=== PATIENT | female | born 1980 | race Caucasian/White ===

== ENCOUNTER 2019-03-06 05:19 | Inpatient (IN) | payer MEDICAID, OTHER ==
[~2019-03-06] VITALS: Ht 170.2 cm; Wt 84.5 kg
[2019-03-06] MEDS ORDERED: MORPHINE SULFATE 4 MG/ML SYR/VIAL IV ONE (05:45)
[2019-03-06] MEDS ORDERED: SODIUM CHLORIDE 0.9% 1,000 ML IV ONE (05:45)
[2019-03-06] MEDS ORDERED: ONDANSETRON HCL 4 MG/2 ML VIAL IV ONE ×2 (05:45→08:00)
[2019-03-06 06:00] LABS: Urine Amorphous Crystal FEW /hpf (None Seen); Urine Bacteria FEW /hpf (None Seen); Urine Blood 3+ /uL (Negative); Urine Budding Yeast MANY /hpf (None Seen); Urine Mucus FEW (None Seen); Urine Specific Gravity 1.024 (1.001-1.035); Urine WBC 44 /hpf (0 - 5); Urine WBC Clumps PRESENT /hpf (None Seen)
[2019-03-06 06:52] LABS: Basophils # (auto) 0 uL; Basophils % (auto) 0.4 % (0.0-2.0); Eosinophils # (auto) 0.1 uL; Hemoglobin 12.2 g/dL (12.2-16.2); Lymphocytes # (auto) 1.4 uL; Mean Corpuscular Volume 78.9 fL (80.0-100.0); Monocytes # (auto) 0.6 uL; Monocytes % (auto) 6.3 % (0.0-12.0); Nucleated Red Blood Cells % 0.1 %
[2019-03-06 06:53] LABS: Eosinophils % (auto) 0.7 % (0.0-7.0); Hematocrit 37.1 % (36.0-46.0); Lymphocytes % (auto) 14.2 % (10.0-50.0); Mean Corpuscular Hgb Conc. 32.9 g/dL (32.0-36.0); Neutrophils # (auto) 7.7 uL; Neutrophils % (auto) 78.4 % (37.0-80.0); Platelet Count (auto) 195 10^3/uL (140-450); White Blood Cell 9.8 10^3/uL (4.4-10.8)
[2019-03-06 07:36] LABS: BUN/Creatinine Ratio 23.3; Potassium 3.9 mmol/L (3.5-5.1)
[2019-03-06 07:37] LABS: Albumin 3.1 g/dL (3.4-5.0); Bilirubin, Total 0.2 mg/dL (0.2-1.0); Calcium 7.9 mg/dL (8.5-10.1); Total Protein 6.5 g/dL (6.4-8.2)
[2019-03-06] MEDS ORDERED: KETOROLAC TROMETH 30 MG/ML 1ML VIAL IV ONE (07:45)
[2019-03-06] MEDS ORDERED: ONDANSETRON HCL 4 MG/2 ML VIAL ONE (07:52)
[2019-03-06 08:29] LABS: Alcohol, Urine < 3.0 mg/dL (0-5); Amphetamine Screen, Urine NEGATIVE (NEGATIVE); Barbiturate Scree,Urine POSITIVE (NEGATIVE); Benzodiazephine Screen, Urine NEGATIVE (NEGATIVE); Cannabinoid Screen, Urine POSITIVE (NEGATIVE); Cocaine Screen, Urine NEGATIVE (NEGATIVE); Opiate Scree,Urine NEGATIVE (NEGATIVE); Phencyclidine Screen, Urine NEGATIVE (NEGATIVE)
[2019-03-06] MEDS ORDERED: HYDROcodone-ACET 5/325MG TAB PO PRN (11:30)
[2019-03-06] MEDS ORDERED: ACETAMINOPHEN 500 MG TAB PO PRN (11:30)
[2019-03-06] MEDS: SODIUM CHLORIDE 0.9% 1,000 ML IV SCH ×2 (12:00→19:20)
--- NOTE | 2019-03-06 12:23 | NUR ---
MS admit from ER TRANTER,ANTWAN admitted to tele/MS after SBAR received. Patient oriented to Ainsley Diaz, RN primary RN, unit, room, bed, and unit policies regarding patient care and visiting hours. Patient weighed by bedscale and encouraged to call if they need something. All questions and concerns addressed, patient verbalized understanding. Note:
[2019-03-06] MEDS: ONDANSETRON HCL 4 MG/2 ML VIAL IV PRN ×2 (12:57→17:10)
[2019-03-06] MEDS: KETOROLAC TROMETH 30 MG/ML 1ML VIAL IV PRN (12:57)
[2019-03-06 13:00] VITALS: BP 134/63
[2019-03-06] MEDS: MORPHINE SULF INJ 2 MG/ML SYRINGE 1ML IV PRN ×3 (13:14→21:05)
--- NOTE | 2019-03-06 13:19 | NUR ---
Pain 10/10. Patient crying, nauseated. Confirmed with patient that she is not allergic to morphine. Morphine 2 mg IV given. Will continue to monitor.
--- NOTE | 2019-03-06 13:23 | NUR ---
Spoke with pharmacist, IVÁN, and informed her that patient has confirmed she is not allergic to Morphine.
[2019-03-06] MEDS: metroNIDAZOLE 500MG/100ML 100 ML IV SCH ×2 (14:00→23:02)
[2019-03-06 14:23] VITALS: BP 134/63
[2019-03-06 16:22] VITALS: BP 99/54
[2019-03-06] MEDS: TAMSULOSIN HYDROCHLORIDE 0.4 MG CAP PO SCH (18:11)
--- NOTE | 2019-03-06 19:00 | NUR ---
Opening Shift Note Assumed care of patient, awake and alert. No S/S of distress/SOB or pain. Instructed on POC and to call for assist PRN, will continue to monitor for changes Q1hr and PRN.
[2019-03-06 21:36] VITALS: BP 104/61
[2019-03-06] MEDS: DOCUSATE SOD 100 MG CAP PO SCH (23:02)
[2019-03-06] MEDS: FAMOTIDINE (10MG/ML) 2ML VL IV SCH (23:02)
[2019-03-07] MEDS: ONDANSETRON HCL 4 MG/2 ML VIAL IV PRN ×3 (01:12→18:43)
[2019-03-07] MEDS: MORPHINE SULF INJ 2 MG/ML SYRINGE 1ML IV PRN ×6 (01:12→21:58)
[2019-03-07] MEDS: SODIUM CHLORIDE 0.9% 1,000 ML IV SCH ×3 (03:20→19:20)
[2019-03-07 05:12] LABS: Basophils # (auto) 0 uL; Eosinophils # (auto) 0.1 uL; Monocytes # (auto) 0.6 uL; Neutrophils # (auto) 3.9 uL
[2019-03-07 05:17] LABS: Basophils % (auto) 0.4 % (0.0-2.0); Eosinophils % (auto) 1.2 % (0.0-7.0); Hematocrit 32.7 % (36.0-46.0); Hemoglobin 10.6 g/dL (12.2-16.2); Lymphocytes # (auto) 1.7 uL; Lymphocytes % (auto) 27.1 % (10.0-50.0); Mean Corpuscular Hemoglobin 25.7 pg (28.0-32.0); Mean Corpuscular Hgb Conc. 32.6 g/dL (32.0-36.0); Neutrophils % (auto) 62.3 % (37.0-80.0); Nucleated Red Blood Cells % 0.1 %; Platelet Count (auto) 160 10^3/uL (140-450); Red Blood Cells 4.14 10^6/uL (4.0-5.20); Red Cell Distribution Width 17.8 % (11.8-14.3); White Blood Cell 6.2 10^3/uL (4.4-10.8)
[2019-03-07 05:29] VITALS: BP 105/52
[2019-03-07 05:36] LABS: Calcium 7.8 mg/dL (8.5-10.1); Potassium 4.1 mmol/L (3.5-5.1)
[2019-03-07 05:38] LABS: BUN/Creatinine Ratio 23.8
[2019-03-07] MEDS: metroNIDAZOLE 500MG/100ML 100 ML IV SCH (05:48)
[2019-03-07] MEDS: cefTRIAXone 1GM/50ML D5W 50 ML IV SCH (08:50)
[2019-03-07 09:00] VITALS: BP 110/65
[2019-03-07] MEDS: FAMOTIDINE (10MG/ML) 2ML VL IV SCH ×2 (10:16→21:58)
[2019-03-07] MEDS: DOCUSATE SOD 100 MG CAP PO SCH ×2 (10:16→21:58)
[2019-03-07 13:00] VITALS: BP 101/68
--- NOTE | 2019-03-07 13:40 | NUR ---
right forarm 22g peripheral iv inserted pt tolerated well iv patent blood drawback noted
[2019-03-07] MEDS ORDERED: MANNITOL FTV 25% 12.5 GM/50 ML 50 ML IV ONE (15:30)
[2019-03-07 17:00] VITALS: BP 107/68
[2019-03-07] MEDS: TAMSULOSIN HYDROCHLORIDE 0.4 MG CAP PO SCH (17:53)
[2019-03-07 22:47] VITALS: BP 102/52
[2019-03-08] MEDS: MORPHINE SULF INJ 2 MG/ML SYRINGE 1ML IV PRN ×5 (01:34→22:25)
[2019-03-08] MEDS: SODIUM CHLORIDE 0.9% 1,000 ML IV SCH ×3 (03:20→20:59)
[2019-03-08 05:10] VITALS: BP 93/50
[2019-03-08 06:51] LABS: Basophils # (auto) 0 uL; Basophils % (auto) 0.6 % (0.0-2.0); Eosinophils # (auto) 0.1 uL; Hemoglobin 10.2 g/dL (12.2-16.2); Lymphocytes # (auto) 1.4 uL; Monocytes # (auto) 0.4 uL; Nucleated Red Blood Cells % 0.1 %
[2019-03-08 07:02] LABS: Eosinophils % (auto) 1.3 % (0.0-7.0); Hematocrit 30.7 % (36.0-46.0); Lymphocytes % (auto) 34.4 % (10.0-50.0); Mean Corpuscular Hemoglobin 26.1 pg (28.0-32.0); Mean Corpuscular Hgb Conc. 33.1 g/dL (32.0-36.0); Mean Corpuscular Volume 78.7 fL (80.0-100.0); Neutrophils # (auto) 2.2 uL; Neutrophils % (auto) 53.7 % (37.0-80.0); Platelet Count (auto) 138 10^3/uL (140-450); Red Cell Distribution Width 17.7 % (11.8-14.3); White Blood Cell 4.1 10^3/uL (4.4-10.8)
[2019-03-08 07:03] LABS: Potassium 3.9 mmol/L (3.5-5.1)
[2019-03-08 07:11] LABS: Albumin 2.5 g/dL (3.4-5.0); BUN/Creatinine Ratio 20.3; Bilirubin, Total 0.2 mg/dL (0.2-1.0); Calcium 7.8 mg/dL (8.5-10.1); Total Protein 5.2 g/dL (6.4-8.2)
--- NOTE | 2019-03-08 07:15 | NUR ---
Opening Shift Note Assumed care of patient, PT resting in bed with even and non-labored respirations. No S/S of distress/SOB or pain. Instructed on POC and to call for assist PRN, will continue to monitor for changes Q1hr and PRN.
[2019-03-08 09:00] VITALS: BP 108/65
[2019-03-08] MEDS: ONDANSETRON HCL 4 MG/2 ML VIAL IV PRN ×2 (09:23→22:25)
[2019-03-08] MEDS: FAMOTIDINE (10MG/ML) 2ML VL IV SCH ×2 (09:23→22:25)
[2019-03-08] MEDS: DOCUSATE SOD 100 MG CAP PO SCH ×2 (09:23→22:00)
[2019-03-08] MEDS: cefTRIAXone 1GM/50ML D5W 50 ML IV SCH (09:23)
[2019-03-08 13:00] VITALS: BP 124/58
--- NOTE | 2019-03-08 13:30 | NUR ---
PT COMPLAINING OF CONSTIPATION. PT STATES "I HAVE HAD RECONSTRUCTION SURGERY ON MY COLON AND I AM NOT ABLE TO STRAIN WHILE HAVING A BOWEL MOVEMENT SO I NEED SOMETHING STRONGER BECAUSE I WILL BE IN BIG TROUBLE IF I STRAIN TO HARD." PT HAS NORMOACTIVE BOWEL SOUNDS, STOMACH IS SOFT, ROUND AND NON-TENDER.
--- NOTE | 2019-03-08 13:50 | NUR ---
ROUNDING UROLOGY MD GONZALEZ ASSOCIATE AT BEDSIDE. ALL QUESTIONS AND CONCERNS ADDRESSED AT THIS TIME.
--- NOTE | 2019-03-08 14:00 | NUR ---
AC [facility]KEON RE: PT NEEDING STRONGER MEDICATION FOR CONSTIPATION Addendum: 03/08/19 at 1403 by NEGRITA JEFFERSON RN RN AWAITING FOR CALL BACK.
--- NOTE | 2019-03-08 14:00 | NUR ---
PT SIGNED AMA TO SMOKE. PT EDUCATED ABOUT NEGATIVE CONSEQUENCES OF SMOKING AND THE BENEFITS OF SMOKING CESSATION. PT VERBALIZED UNDERSTANDING AND WOULD STILL LIKE TO CONTINUE WITH THE AMA.
--- NOTE | 2019-03-08 15:48 | NUR ---
IV removal IV DC'd with clean sterile technique, catheter fully intact. Pressure dressing applied to site. Patient tolerated well.
--- NOTE | 2019-03-08 15:49 | NUR ---
IV insertion IV access obtained, via clean sterile technique by inserting 20 gauge catheter at the left forearm after 1 attempt(s). IV secured properly. No trauma to site. Patient tolerated well.
[2019-03-08 17:00] VITALS: BP 111/52
[2019-03-08] MEDS: TAMSULOSIN HYDROCHLORIDE 0.4 MG CAP PO SCH (17:00)
[2019-03-08] MEDS ORDERED: FLEET ENEMA(ADULT) 135 ML PR ONE (17:15)
[2019-03-08] MEDS ORDERED: FLEET ENEMA(ADULT) 135 ML PR PRN (17:30)
--- NOTE | 2019-03-08 19:05 | NUR ---
Opening Shift Note Assumed care of patient, awake and alert. No S/S of distress/SOB. POC discussed and questions answered. Bed is locked in lowest position with side rails up x2 for safety, call light is within reach and patient encouraged to call for assistance as needed, will continue to round q1hr and prn.
[2019-03-08 21:55] VITALS: BP 102/54
[2019-03-09] MEDS: MORPHINE SULF INJ 2 MG/ML SYRINGE 1ML IV PRN ×5 (02:39→20:09)
[2019-03-09] MEDS: SODIUM CHLORIDE 0.9% 1,000 ML IV SCH ×3 (04:05→18:19)
[2019-03-09 05:45] LABS: BUN/Creatinine Ratio 17.7; Calcium 7.9 mg/dL (8.5-10.1)
[2019-03-09 06:22] VITALS: BP 96/46
--- NOTE | 2019-03-09 07:49 | NUR ---
Opening Note Assumed pt care from [facility] nurse. Pt is a/ox4 with no s/s of distress or SOB. PT is currently laying in bed with c/o of generalized abdominal pain; discussed available pain medication. Discussed POC with pt and the possibility of procedure tomorrow if pt does not pass stone; pt verbalized understanding. Safety measures maintained with call light within reach, bed in lowest position and side rails up. Will continue to monitor for changes q1hr and prn.
[2019-03-09 08:21] VITALS: BP 100/52
[2019-03-09] MEDS: cefTRIAXone 1GM/50ML D5W 50 ML IV SCH (08:31)
[2019-03-09] MEDS: FAMOTIDINE (10MG/ML) 2ML VL IV SCH ×2 (09:24→22:04)
[2019-03-09] MEDS: DOCUSATE SOD 100 MG CAP PO SCH ×2 (09:24→21:55)
--- NOTE | 2019-03-09 11:01 | NUR ---
Pt Off Unit to Smoke Signed AMA to smoke form is in the chart. Pt knows to be back on unit within 30 minutes. Addendum: 03/09/19 at 1144 by KINSEY JUAREZ RN RN PATIENT BACK ON UNIT
[2019-03-09 12:33] VITALS: BP 113/78
--- NOTE | 2019-03-09 13:55 | NUR ---
Pt Off Unit Pt off unit to smoke. Pt aware of need to be back within 30 minutes. Signed AMA to smoke in chart. Addendum: 03/09/19 at 1430 by KINSEY JUAREZ RN RN Pt back on unit
--- NOTE | 2019-03-09 15:21 | NUR ---
Nutrition Assessment Notes please see attached link for complete assessment Est. Needs BW 78 [id number] kcal (23-25 kcal/kgBW), 78-85 gms pro (1.0-1.1 gms/kgBW). Will continue to monitor pertinent labs and reassess nutrient need prn Addendum: 03/09/19 at [address] Amended: Links added.
[2019-03-09 16:50] VITALS: BP 96/54
[2019-03-09] MEDS: TAMSULOSIN HYDROCHLORIDE 0.4 MG CAP PO SCH (18:03)
[2019-03-09] MEDS: ONDANSETRON HCL 4 MG/2 ML VIAL IV PRN (20:08)
[2019-03-09 21:00] VITALS: BP 98/54
[2019-03-10] MEDS: SODIUM CHLORIDE 0.9% 1,000 ML IV SCH ×3 (02:34→20:27)
[2019-03-10 04:30] VITALS: BP 106/68
[2019-03-10] MEDS: ONDANSETRON HCL 4 MG/2 ML VIAL IV PRN (04:38)
[2019-03-10] MEDS: MORPHINE SULF INJ 2 MG/ML SYRINGE 1ML IV PRN ×3 (04:38→18:58)
[2019-03-10 07:10] LABS: Basophils # (auto) 0 uL; Eosinophils # (auto) 0.1 uL; Hematocrit 32.4 % (36.0-46.0); Monocytes # (auto) 0.5 uL; Monocytes % (auto) 10.9 % (0.0-12.0); Neutrophils # (auto) 2.4 uL
[2019-03-10 07:18] LABS: Basophils % (auto) 0.8 % (0.0-2.0); Eosinophils % (auto) 2.3 % (0.0-7.0); Hemoglobin 10.6 g/dL (12.2-16.2); Lymphocytes # (auto) 1.3 uL; Lymphocytes % (auto) 30.1 % (10.0-50.0); Mean Corpuscular Hgb Conc. 32.7 g/dL (32.0-36.0); Mean Corpuscular Volume 79.6 fL (80.0-100.0); Neutrophils % (auto) 55.9 % (37.0-80.0); Platelet Count (auto) 136 10^3/uL (140-450); Red Blood Cells 4.07 10^6/uL (4.0-5.20); Red Cell Distribution Width 17.6 % (11.8-14.3); White Blood Cell 4.4 10^3/uL (4.4-10.8)
[2019-03-10 07:29] LABS: Albumin 2.6 g/dL (3.4-5.0); Calcium 7.9 mg/dL (8.5-10.1); Potassium 4.4 mmol/L (3.5-5.1)
[2019-03-10 07:45] LABS: Bilirubin, Total 0.2 mg/dL (0.2-1.0); Total Protein 5.4 g/dL (6.4-8.2)
--- NOTE | 2019-03-10 07:52 | NUR ---
TAKEN TO PRE OP VIA BED. NO SIGNS OF DISTRESS REPORT GIVEN TO IRAIS Gutierrez
[2019-03-10] MEDS ORDERED: ROPIVACAINE 0.5% (5MG/ML) 20ML AMPULE IJ ONE (08:03)
[2019-03-10] MEDS: IOHEXOL 300 MG/ML 100ML BOTTLE IJ ONE ×2 (08:08→08:46)
[2019-03-10] MEDS ORDERED: ceFAZolin 1GM/50ML 50 ML IV ONE (08:10)
[2019-03-10] MEDS ORDERED: fentaNYL CITRATE 100 MCG/2 ML VL ONE (08:12)
[2019-03-10] MEDS ORDERED: MEPERIDINE HCL (25 MG/ML) 1ML VIAL ONE (08:12)
[2019-03-10] MEDS ORDERED: MIDAZOLAM HCL 1MG/1ML-2 ML VIAL ONE (08:13)
[2019-03-10] MEDS ORDERED: MIDAZOLAM HCL 1MG/1ML-2 ML VIAL IV PRN (08:15)
[2019-03-10] MEDS ORDERED: KETOROLAC TROMETH 30 MG/ML 1ML VIAL IV ONE (08:15)
[2019-03-10] MEDS ORDERED: ONDANSETRON HCL 4 MG/2 ML VIAL IV PRN (08:15)
[2019-03-10] MEDS ORDERED: PROPOFOL 10 MG/ML 20 ML IV ONE (08:15)
[2019-03-10] MEDS ORDERED: DexAMETHasone SOD PHOS 10MG/1ML VIAL INJ ONE (08:15)
[2019-03-10] MEDS ORDERED: HYDROmorphone HCL 2 MG/ML VL IV PRN (08:15)
[2019-03-10] MEDS ORDERED: ePHEDrine SULFATE 50 MG/ML AMP IV PRN (08:15)
[2019-03-10] MEDS ORDERED: MORPHINE SULFATE 4 MG/ML SYR/VIAL IV PRN (08:15)
[2019-03-10] MEDS ORDERED: LABETALOL HCL 5 MG/ML 4ML SYRINGE IV PRN (08:15)
[2019-03-10 08:28] VITALS: BP 110/58
[2019-03-10] MEDS ORDERED: ePHEDrine SULFATE 50 MG/ML AMP ONE (08:35)
[2019-03-10] MEDS: cefTRIAXone 1GM/50ML D5W 50 ML IV SCH (09:00)
[2019-03-10] MEDS: FAMOTIDINE (10MG/ML) 2ML VL IV SCH ×2 (10:00→21:45)
[2019-03-10] MEDS: DOCUSATE SOD 100 MG CAP PO SCH ×2 (10:00→21:48)
[2019-03-10 12:28] VITALS: BP 123/67
[2019-03-10] MEDS: KETOROLAC TROMETH 30 MG/ML 1ML VIAL IV PRN (12:31)
[2019-03-10] MEDS: TAMSULOSIN HYDROCHLORIDE 0.4 MG CAP PO SCH (18:35)
--- NOTE | 2019-03-10 19:45 | NUR ---
OPENING SHIFT NOTE RECEIVED PATIENT REPORT FROM DAY SHIFT RN. PATIENT SITTING UP IN BED WATCHING TELEVISION. PATIENT IS A/O X 4. NO S/S OF DISTRESS OR SOB. PATIENT C/O PAIN, WILL MEDICATE PRESCRIBED BY MD. UPDATED PATIENT ON POC, VERBALIZED UNDERSTANDING. BED IN LOWEST LOCKED POSITION, CALL LIGHT WITHIN REACH. WILL CONTINUE TO MONITOR Q1H AND PRN.
[2019-03-10 23:00] VITALS: BP 112/60
[2019-03-11] MEDS: MORPHINE SULF INJ 2 MG/ML SYRINGE 1ML IV PRN ×4 (03:05→21:22)
[2019-03-11] MEDS: SODIUM CHLORIDE 0.9% 1,000 ML IV SCH ×3 (03:20→19:20)
[2019-03-11 05:47] VITALS: BP 115/70
[2019-03-11 07:14] LABS: Basophils # (auto) 0 uL; Eosinophils # (auto) 0.1 uL; Hematocrit 30.1 % (36.0-46.0); Hemoglobin 9.9 g/dL (12.2-16.2); Monocytes # (auto) 0.5 uL; Neutrophils # (auto) 2.9 uL; Nucleated Red Blood Cells % 0.1 %; White Blood Cell 5.5 10^3/uL (4.4-10.8)
[2019-03-11 07:18] LABS: Basophils % (auto) 0.5 % (0.0-2.0); Eosinophils % (auto) 1.5 % (0.0-7.0); Lymphocytes % (auto) 36.1 % (10.0-50.0); Mean Corpuscular Hemoglobin 26.2 pg (28.0-32.0); Mean Corpuscular Hgb Conc. 32.9 g/dL (32.0-36.0); Mean Corpuscular Volume 79.5 fL (80.0-100.0); Neutrophils % (auto) 52.9 % (37.0-80.0); Platelet Count (auto) 134 10^3/uL (140-450); Red Blood Cells 3.78 10^6/uL (4.0-5.20); Red Cell Distribution Width 17.5 % (11.8-14.3)
[2019-03-11 07:29] LABS: Calcium 7.6 mg/dL (8.5-10.1)
[2019-03-11 07:33] LABS: BUN/Creatinine Ratio 13.5
--- NOTE | 2019-03-11 07:45 | NUR ---
OPENING SHIFT NOTE: Received report from [facility] RNs, Anna and Leona. Assumed care of patient. Patient resting in bed, denies pain. Bed in lowest position, rails x2 up and call light within reach. Updated on plan of care. Will continue to monitor.
[2019-03-11 09:00] VITALS: BP 115/69
[2019-03-11] MEDS: cefTRIAXone 1GM/50ML D5W 50 ML IV SCH (10:22)
[2019-03-11] MEDS: DOCUSATE SOD 100 MG CAP PO SCH ×2 (10:22→21:22)
[2019-03-11] MEDS: FAMOTIDINE (10MG/ML) 2ML VL IV SCH ×2 (10:23→21:22)
[2019-03-11] MEDS: PHENAZOPYRIDINE HCL 100 MG TAB PO SCH ×2 (12:59→18:27)
--- NOTE | 2019-03-11 17:00 | NUR ---
EDEMA: Patient c/o swelling to BLE and abdomen. Patient noted to have 1+ edema to BLE and noticebale increased abdominal girth. Patient also stating that she feels that her breasts are enlarged and thighs. Patient requesting to stop IV fluids. Patient has received over 1L of IVF and has been drinking fluids throughout shift. Patient has only had ~1L of urine out put this shift. Will continue to monitor.
[2019-03-11] MEDS: TAMSULOSIN HYDROCHLORIDE 0.4 MG CAP PO SCH (17:13)
[2019-03-11 17:30] VITALS: BP 129/83
--- NOTE | 2019-03-11 18:30 | NUR ---
NEPHRO CONSULT: Patient requesting RN to place consult for Nephro with Dr Ramirez. Explained to patient that RN cannot place consult without the consent of attending physician, Dr Lopez. Patient agrees to wait and speak with Dr Lopez in the morning regarding consult request.
--- NOTE | 2019-03-11 19:15 | NUR ---
CLOSING SHIFT NOTE: Report given to [facility] RNs, Duong. Endorsed care of patient.
--- NOTE | 2019-03-11 19:30 | NUR ---
OPENING SHIFT NOTE RECEIVED PATIENT REPORT FROM DAY SHIFT RN. PATIENT SITTING UP IN BED WITH FAMILY AT BEDSIDE. PATIENT IS A/O X 4. NO S/S OF DISTRESS OR SOB. PATIENT C/O PAIN, WILL MEDICATE PRESCRIBED BY MD. UPDATED PATIENT ON POC, VERBALIZED UNDERSTANDING. BED IN LOWEST LOCKED POSITION, CALL LIGHT WITHIN REACH. WILL CONTINUE TO MONITOR Q1H AND PRN.
[2019-03-11 22:00] VITALS: BP 111/64
[2019-03-12] MEDS: SODIUM CHLORIDE 0.9% 1,000 ML IV SCH ×2 (03:20→12:49)
[2019-03-12] MEDS: MORPHINE SULF INJ 2 MG/ML SYRINGE 1ML IV PRN (03:57)
[2019-03-12 05:30] VITALS: BP 110/69
[2019-03-12 09:00] VITALS: BP 118/71
[2019-03-12] MEDS: PHENAZOPYRIDINE HCL 100 MG TAB PO SCH ×2 (09:53→12:49)
[2019-03-12] MEDS: DOCUSATE SOD 100 MG CAP PO SCH (09:53)
[2019-03-12] MEDS: cefTRIAXone 1GM/50ML D5W 50 ML IV SCH (09:53)
[2019-03-12] MEDS: FAMOTIDINE (10MG/ML) 2ML VL IV SCH (09:53)
[2019-03-12 12:29] VITALS: BP 109/72
--- NOTE | 2019-03-12 14:00 | NUR ---
Discharge Went over all discharge paperwork with patient. Answered all questions. Prescriptions given to patient. IV removed. ID bands removed. Patient not on telemetry. All belongings went with patient. She left in personal vehicle.
== END 2019-03-12 14:20 | disposition home or self-care (01) | DRG 463 ==
LOC: EDBD 05:19 → ER 05:23 → OVERFLOW 05:24 → WEST WING 12:29
PROVIDERS: ADMIT Nurse Practitioner Acute Care; ATTEND Internal Medicine
PROC: 0TF6XZZ Fragmentation in Right Ureter, External Approach (ICD-10-PCS; principal; 2019-03-10 08:19)
DX: N13.6 Pyonephrosis (principal); E44.0 Moderate protein-calorie malnutrition; D64.9 Anemia, unspecified; N20.2 Calculus of kidney with calculus of ureter; K59.00 Constipation, unspecified; Z68.29 Body mass index [BMI] 29.0-29.9, adult; Z80.3 Family history of malignant neoplasm of breast; Z83.3 Family history of diabetes mellitus; Z72.0 Tobacco use
CPT/HCPCS: 36415; 74176; 76705; 80048; 80053; 80307; 81001; 81025; 82150; 83690; 84702; 85025; 87086; G0378; J0690; J0696; J1100; J1885; J2250; J2405; J2704; J3490